=== PATIENT | male | born 1970 | race Caucasian/White ===

== ENCOUNTER 2020-07-17 16:22 | Outpatient (CLI) | payer OTHER, SELFPAY ==
--- NOTE | ~2020-07-17 | XR_ITS ---
EXAMINATION: XR cervical spine 4-5V EXAM DATE: 07/17/2020 16:56 INDICATION: Cervical radiculopathy. No acute injury. TECHNIQUE: Cervical spine frontal, lateral, lateral swimmers, and open-mouth odontoid projections. C omparison is made to prior examination from 10/23/2014. FINDINGS: There is no evidence of acute cervical fracture. The odontoid process is intact. Pre-dens space is normal. Prevertebral soft tissue is normal. There are no soft tissue abnormalities identi fied. There is moderate loss of the disc heights from C4 through C7, mild to moderate at C3-4. There is 2 mm of retrolisthesis C4 on C5 and C5 on C6. Moderate lower cervical arthropathy. There may be s ome significant mid cervical neural foraminal stenosis. Lung apices are clear. IMPRESSION: Moderate lower cervical spondylosis. Reviewed, dictated and finalized at location A. [employer]
== END 2020-07-17 16:23 | disposition home or self-care (01) ==
PROVIDERS: Visit Provider Family Medicine
DX: M47.22 Other spondylosis with radiculopathy, cervical region (principal)
CPT/HCPCS: 72050

== ENCOUNTER 2022-05-08 12:45 | Outpatient (CLI) | payer OTHER, SELFPAY | END 2022-05-08 12:46 | disposition home or self-care (01) | LOC: ANHAUDASC 12:46 | PROVIDERS: Visit Provider Otolaryngology | DX: H93.13 Tinnitus, bilateral (principal); H90.3 Sensorineural hearing loss, bilateral | CPT/HCPCS: 92557; 92567 ==

== ENCOUNTER 2022-07-21 01:35 | Day surgery (SDC) | payer OTHER, SELFPAY ==
[2022-07-10 11:28] VITALS: BMI 25.2
[2022-07-21 10:40] VITALS: BP 120/84; PULSE 86; RESP 18; TEMP 36.5; O2SAT 97; BMI 24.9
[2022-07-21] MEDS: LACTATED RINGERS 1,000 ML 150 ML IV CONT (10:53)
--- NOTE | 2022-07-21 11:17 | P.PNAN_ITS ---
Anes - Initial Pre Proc Eval Procedure: Operation Date: 07/21/22 14:00 Proposed Procedures p Esophagogastroduodenoscopy & Screening Colonoscopy - Demarcus West MD Date/Time: 07/21/22 11:17 Surgeon: Demarcus Murillo MD Pre Op Diagnosis: GERD, neoplasm screening Patient Data Age: 51 Gender: M Height: 1.91 m Weight: 90.4 kg Last Vital Signs Temp 97.7 F 07/21/22 10:40 Pulse 86 07/21/22 10:40 Resp 18 07/21/22 10:40 BP 120/84 07/21/22 10:40 Pulse Ox 97 07/21/22 10:40 O2 Del Method Room Air 07/21/22 10:40 Allergies Allergy/AdvReac Type Severity Reaction Status Date / Time allopurinol AdvReac Mild Dry Mouth Verified 07/21/22 10:39 Home Medications Medication Instructions Recorded Confirmed Type No Home Medications 07/03/22 07/21/22 History Patient hx anesthesia problems: none Family hx anesthesia problems: none Results Review: All pre-operative results and documents have been reviewed as part of the pre- operative evaluation. [facility], [facility] Past Medical History Medical History (Updated 07/03/22 @ 09:50 by Demarcus Murillo MD) Colon cancer screening Surgical History Surgical History History of nasal cauterization Social History Social History Smoking status: Never smoker Alcohol intake: never Substance use: never Living arrangements: with family Spiritual care concerns: No Anes - Eval Final PreProcedure Day of Procedure 07/21/22 11:17 Patient weight: normal Heart: regular rate and rhythm Lungs: clear to auscultation Airway: Mallampati scale class II Neurological: alert and oriented Last oral intake: >/= 8 hours ASA classification: II Emergent: no Anesthetic plan: proceed Anesthesia type and monitoring: general GIVS and standard monitoring Results Review: All pre-operative results and documents have been reviewed as part of the pre- operative evaluation. Informed Consent: The patient's anesthetic plan and its attendant risks and benefits were discussed with the patient/family/POA. Questions were solicited and answers provided to the satisfaction of the patient/family/POA.
--- NOTE | 2022-07-21 11:18 | WPDHPUPDATE1 ---
History and Physical Update Update Date/Time: 07/21/22 11:18 History and Physical has been reviewed, including an updated exam of the patient. There are NO changes in the patient's condition. Risks, benefits, and alternatives have been discussed and questions answered. Patient agrees to proceed with procedure.
--- NOTE | 2022-07-21 11:33 | SUR.OPER ---
EGD: [id number] COLON: [id number]
[2022-07-21 11:45] VITALS: BP 101/66; PULSE 74; RESP 20; O2SAT 96
[2022-07-21 11:55] VITALS: BP 105/71; PULSE 66; RESP 15; O2SAT 96
[2022-07-21 12:05] VITALS: BP 107/77; PULSE 61; RESP 20; O2SAT 100
== END 2022-07-21 12:21 | disposition home or self-care (01) ==
PROVIDERS: PCP Family Medicine; Visit Provider Internal Medicine Gastroenterology
PROC: 0DJ08ZZ Inspection of Upper Intestinal Tract, Via Natural or Artificial Opening Endoscopic (ICD-10-PCS; CPT 43235; principal; 2022-07-21 14:00)
DX: Z12.11 Encounter for screening for malignant neoplasm of colon (principal); K64.8 Other hemorrhoids; K21.9 Gastro-esophageal reflux disease without esophagitis
CPT/HCPCS: 45378; 43239; 88305; J2704; J7120

== ENCOUNTER 2024-02-09 13:03 | Emergency (ER) | payer OTHER, SELFPAY ==
--- NOTE | ~2024-02-09 | XR_ITS ---
EXAMINATION: XR elbow RT min 3V DATE: 02/09/2024 13:31 INDICATION: Right elbow pain. Fall. TECHNIQUE: 4 views of right elbow were obtained. COMPARISON: None. FINDINGS: Bone alignment is normal. No fracture. There is mild elbow joint osteoarthritis. No elbow j oint effusion. IMPRESSION: 1. Mild elbow joint osteoarthritis. Reviewed, dictated and finalized at location A.
[2024-02-09 13:09] VITALS: BP 149/101; PULSE 77; RESP 16; TEMP 36.8; O2SAT 100
--- NOTE | 2024-02-09 13:10 | ED.GENADULT ---
HPI - General Adult General Chief complaint: Extremity Injury, Upper Stated complaint: Right Arm Pain Time Seen by Provider: 02/09/24 13:11 Source: patient, RN notes reviewed and old records reviewed Mode of arrival: ambulatory Limitations: no limitations History of Present Illness HPI narrative: 53-year-old male to [facility] for complaint of right elbow pain and swelling. Patient states that approximately 9 days ago he fell while intoxicated. Patient does not recall the incident and it was not witnessed. Patient reports ongoing discomfort to right elbow, worse with weight-bearing. Patient denies any pertinent medical history, extremity numbness, tingling, weakness, prior injury. Patient in no acute distress. Related Data Home Medications Medication Instructions Recorded Confirmed No Home Medications 07/03/22 02/09/24 Allergies Allergy/AdvReac Type Severity Reaction Status Date / Time allopurinol AdvReac Mild Dry Mouth Verified 08/07/22 11:08 Review of Systems Review of Systems: All systems reviewed & are unremarkable except as noted in HPI and below Constitutional: Constitutional: Reports no additional constitutional complaints Eyes: Eyes: Reports no additional eye complaints ENT: Reports system reviewed and no additional complaints, except as documented Cardiovascular: Cardiovascular: Reports no additional cardiovascular complaints, Denies chest pain and Denies dyspnea Respiratory: Respiratory: Reports no additional respiratory complaints, Denies cough and Denies dyspnea Musculoskeletal: Musculoskeletal: Reports as per HPI, Reports arthralgias and Reports joint swelling Comments: Right elbow Neurologic: Reports system reviewed and no additional complaints, except as documented Psychiatric: Psychiatric: Reports no additional psychiatric complaints PMFSH Past Medical History Medical History Colon cancer screening Surgical History Surgical History History of nasal cauterization Social History Social History Smoking status: Never smoker Alcohol intake: never Substance use: never Lack of Transportation: No Lack of Food: Sometimes True Current Housing: I Have Housing Concerned About Future Housing: No Difficulty Paying Gas/Electric Bills: No Difficulty Paying for Meds: No Currently Unemployed: No Education: High School Diploma/GED Difficulty w/ Childcare or Family Care: No Living arrangements: with family Spiritual care concerns: No Comments At the time of my signature, I reviewed and agree with the nursing past medical, surgical, social, and family history. There is no relevant family history pertinent to the patient complaint. Exam Const: General: cooperative, healthy appearing, comfortable, no acute distress, alert and well nourished Nutritional Appearance: well nourished Orientation/consciousness: patient oriented x3 Limitations: no limitations HENMT: Head: normal to inspection Ears: external ears normal Face/Nose/Sinus: Normal external nose present, Normal nares present, normal facial exam, No erythema and No edema Face and sinus: normal facial exam, no erythema and no edema Mouth: Yes Normal oral and palatal mucosa present Eyes: General: appearance normal, both eyes and all related structures Neck: Neck: normal visual inspection, full ROM and no meningeal signs Lymphatic: no lymphadenopathy noted and no lymphedema noted Chest: Chest palpation & inspection: normal inspection of the chest Resp: Effort & Inspection: normal respiratory effort and able to speak in complete sentences Auscultation: clear to auscultation bilaterally Cardio: Jugular venous distension: no JVD Rate: regular rate Rhythm: regular rhythm Back/Spine/Pelvis: Cervical Spine: cervical ROM n
== END 2024-02-09 13:59 | disposition home or self-care (01) ==
PROVIDERS: Emergency Provider Nurse Practitioner Family; PCP Family Medicine
DX: M25.521 Pain in right elbow (principal); S66.911A Strain of unspecified muscle, fascia and tendon at wrist and hand level, right hand, initial encounter; W19.XXXA Unspecified fall, initial encounter
CPT/HCPCS: 73080; 99213; G0463